=== PATIENT | male | born 1995 | race African-American/Black ===

== ENCOUNTER 2022-06-07 11:36 | Emergency (ER) | payer OTHER ==
[2022-06-07 12:34] VITALS: BP 116/77; PULSE 80; RESP 18; TEMP 98.4; BMI 30.7
[2022-06-07] MEDS ORDERED: KETOROLAC TROMETHAMINE 30 MG/1 ML VIAL IM ONE (13:16)
[2022-06-07] MEDS ORDERED: diazePAM 5 MG TABLET PO ONE (13:16)
[2022-06-07] MEDS ORDERED: diazePAM 5 MG TABLET ONE (13:21)
[2022-06-07] MEDS ORDERED: KETOROLAC TROMETHAMINE 30 MG/1 ML VIAL ONE (13:21)
[2022-06-07 15:04] LABS: EPI CELLS 3 /uL (0-25.1); HYALINE CASTS 0 /uL (0-3.1); PH,URINE 6.5 (5.0-8.0); URINE APPEARANCE CLEAR; URINE BACTERIA 16 /uL (0-1359); URINE BILIRUBIN NEGATIVE (NEGATIVE); URINE COLOR YELLOW; URINE GLUCOSE (UA) NEGATIVE (NEGATIVE); URINE KETONE TRACE (NEGATIVE); URINE LEUK ESTERASE NEGATIVE (NEGATIVE); URINE NITRITE NEGATIVE (NEGATIVE); URINE PROTEIN 1+ (NEGATIVE); URINE RBC 14 /uL (0-23.9); URINE WBC 6 /uL (0-25.8)
== END 2022-06-07 15:22 | disposition home or self-care (01) ==
LOC: JERFT 11:36
PROC: 3E023GC Introduction of Other Therapeutic Substance into Muscle, Percutaneous Approach (ICD-10-PCS; principal; 2022-06-07)
DX: S29.012A Strain of muscle and tendon of back wall of thorax, initial encounter (principal); X50.0XXA Overexertion from strenuous movement or load, initial encounter
CPT/HCPCS: 71046-TC-FY; 81003; 99284-25